=== PATIENT | male | born 1945 | race Caucasian/White ===

== ENCOUNTER → 2022-12-23 | Outpatient (CLI) | payer MEDICARE ==
--- NOTE | 2022-12-23 12:23 | MR ---
EXAMINATION TYPE: MR knee RT wo con DATE OF EXAM: 12/23/2022 COMPARISON: None HISTORY: Pain in right knee TECHNIQUE: Multiplanar, multisequence imaging of the right knee is performed without IV contrast. FINDINGS: MEDIAL MENISCUS: Extensive degeneration posterior horn medial meniscus. No evidence for tear. Anterio r horn is intact. LATERAL MENISCUS: Anterior and posterior horns are intact without tear. CRUCIATE LIGAMENTS: The anterior and posterior cruciate ligaments are intact and unremarkable. COLLATERAL LIGAMENTS: The medial collateral ligament and lateral collateral ligament complex are inta ct and unremarkable. EXTENSOR MECHANISM: Visualized quadriceps and patellar tendons are intact. EFFUSION: No significant suprapatellar joint effusion. POPLITEAL CYST: No popliteal/caro cyst. TRICOMPARTMENT SPACES: Mild narrowing medial tibiofemoral joint space. Early changes of chondromalaci a patella. CARTILAGE: Intact BONE MARROW SIGNAL: Rather large area of bone marrow contusion involving the lateral femoral condyle extending to the intercondylar region without fracture seen. OTHER: No additional significant abnormality is appreciated. IMPRESSION: 1. Bone marrow contusion as discussed above of the lateral femoral condyle 2. Mild osteoarthritis medial tibiofemoral joint space. Early changes of chondromalacia patella. 3. Myxoid degeneration posterior horn medial meniscus.
== END | disposition home or self-care (01) ==
LOC: RADMRIMAIN 11:01
PROVIDERS: ATTEND Orthopaedic Surgery
DX: S80.01XA Contusion of right knee, initial encounter (principal); M17.11 Unilateral primary osteoarthritis, right knee; M22.41 Chondromalacia patellae, right knee; M23.221 Derangement of posterior horn of medial meniscus due to old tear or injury, right knee